=== PATIENT | male | born 1965 | race Caucasian/White ===

== ENCOUNTER 2017-03-13 08:00 | Day surgery (SDC) | payer OTHER ==
[2017-03-13] MEDS ORDERED: PROPOFOL 10 MG/ML VIAL IV ONE ×2 (14:00)
[2017-03-13] MEDS ORDERED: LIDOCAINE 2% MDV (20MG/ML) 20ML VIAL IV ONE ×2 (14:00)
--- NOTE | 2017-03-15 12:37 | Operative Note ---
DATE OF SURGERY: 03/13/2017 OPERATION: Screening COLONOSCOPY. ENDOSCOPIST: Jason Centeno DO [employer] MANAGER: Maria Alejandra Iverson ANESTHESIA: Provided by anesthesia department. Propofol was titrated to effect. PROCEDURE: Following informed consent from this alert individual including a discussion of the risks and benefits of the procedure and an opportunity for the patient to ask questions, the patient was in the left lateral decubitus position. A digital rectal examination was performed. No abnormalities were noted. The prostate was normal as palpable. Following this, the Olympus [id number] fiberoptic colonoscope was inserted into the rectum without resistance. The rectal mucosa had a normal vascular pattern, normal folds and distensibility. The colonoscope was advanced up through the colon to the level of the cecum without much difficulty. Throughout the bowel the mucosa appeared normal, the folds were normal, and the bowel was fairly well distensible. The cecum was defined by noting the appendiceal orifice and ileocecal valve. The colon preparation was good. Retroflexion accomplished in the cecum failed to demonstrate any changes. From the base of the cecum, the colonoscope was then slowly withdrawn. Again throughout the bowel, the mucosa appeared normal, folds were normal, and the bowel was fairly well distensible. No polyps were noted. Within the rectum, retroflexion was then accomplished. The distal rectum was examined from above and demonstrated [id number] size internal hemorrhoids. No other abnormalities were noted. The endoscope was then straightened and withdrawn. The patient tolerated the procedure well and was returned to the recovery area in stable condition. IMPRESSION: 1. [id number] size internal hemorrhoids. 2. Otherwise unremarkable colonoscopy to the cecum. RECOMMENDATIONS: The patient was advised to have recheck colonoscopy in 10 years' time for screening purposes or sooner should problems arise. Followup will be with Dr. John Garnett. As always, thank you for allowing me to participate in the care of your patient. CC: Dr. Mariola CM
== END 2017-03-13 17:23 | disposition home or self-care (01) ==
LOC: HOP 08:00
PROVIDERS: ATTEND Internal Medicine Gastroenterology
DX: Z12.11 Encounter for screening for malignant neoplasm of colon (principal); K64.8 Other hemorrhoids; Z86.711 Personal history of pulmonary embolism; Z79.01 Long term (current) use of anticoagulants
CPT/HCPCS: 00810; G0121